=== PATIENT | male | born 1965 | race Caucasian/White ===

== ENCOUNTER 2021-02-26 10:09 | Emergency (ER) | payer OTHER, SELFPAY ==
[2021-02-26 10:17] VITALS: BP 124/90; PULSE 90; RESP 16; TEMP 36.7; O2SAT 100
--- NOTE | 2021-02-26 10:33 | ECG_ITS ---
Measurements Intervals [place] Rate: 68 P: 56 NH: 144 QRS: 63 QRSD: 97 T: -30 QT: 379 QTc: 404 Interpretive Statements SINUS RHYTHM EARLY PRECORDIAL R/S TRANSITION MINIMAL Q WAVES- ANTEROLATERAL LEADS INFERIOR INFARCT, PROBABLY RECENT ABNORMAL ECG Electronically Signed On 02-26-2021 15:39:52 CDT by Piter Talbot D.O.
--- NOTE | 2021-02-26 10:53 | ED.GENADULT ---
HPI - General Adult General Chief complaint: Extremity Problem,Nontraumatic Stated complaint: neck pain/faint Source: patient and RN notes reviewed Limitations: no limitations History of Present Illness HPI narrative: The Covid vaccinated, active patient-- who is a smoker/drinker on no meds --presents with syncope and chest pain. Patient states he is pain-free now and has no history of HTN, HLD, AODM, and no known ASHD [based upon remote stress test years ago]. Very early Friday morning about 0 300 AM, patient awoke from rest with left shoulder pain [he attributed to earlier gardening; he also walks 4 miles frequently]. As he was going to get oral NSAIDs, he had a brief episode of syncope resulting in 1 minute loss of consciousness, and abrading his face/nose. At the time he had associated nausea, and his pain syndrome lasted several hours and resolved spontaneously- perhaps after the Motrin he took. Currently he has no CP, S OB, calf pain/edema; no fever, loss of taste/smell, cough. EKG is significantly abnormal with sinus rhythm and ST elevation inferiorly 3 and aVF and small Q's laterally V5?6. He is advised he needs urgent referral to hospital, which he accepts by ambulance; he is given aspirin. Related Data Home Medications Medication Instructions Recorded Confirmed No Home Medications 02/26/21 02/26/21 Allergies Allergy/AdvReac Type Severity Reaction Status Date / Time No Known Allergies Allergy Verified 02/26/21 11:29 Review of Systems Review of Systems: Narrative: General/Constitutional: No weight loss,fever Eyes: N0: Redness,discharge Ears/Nose/Throat: No: Epistaxis,ear discharge Respiratory: Denies: Hemoptysis Gastrointestinal: No Vomiting, Bleeding-rectal Skin: No Lumps, eruption Neurologic: No Focal Weakness,Sz Hematologic: Denies: Petechiae/Purpura Psychiatric: No: Suicida ideationl All Other Systems: Reviewed and Negative PMFSH Comments At time of signature, agree with nursing past medical, surgical, social and family history. There is no relevant family history pertinent to the presenting complaint Exam Narrative: Exam Narrative: General Appearance: Well appearing, No distress EYE: PERRLA, Conjunctiva clear Ears: External ear normal Nose: Normal nose Mouth/Throat: Normal appearing, Normal lips Neck: Supple Respiratory: Airway patent, No respiratory distress Cardiovascular: RRR Abdomen: Soft, Non-tender, Musculoskeletal: Full ROM Skin: Warm, Dry Neurological: A&O x3, CN II-X intact Psychiatric: Normal mood, Normal affect Course Course Emergency Course: EKG sinus rhythm at 84 ID 0.145, QRS 0.09, QTC 0.[address] with [address] elevation 3 in AVF, small 1 box Q waves in V5?6 Vital Signs Vital signs: Vital Signs Temperature 98.1 F 02/26/21 10:17 Pulse Rate 90 02/26/21 10:17 Respiratory Rate 16 02/26/21 10:17 Blood Pressure 124/90 02/26/21 10:17 Pulse Oximetry 100 02/26/21 10:17 Temperature 98.3 F 02/26/21 10:58 Pulse Rate 66 02/26/21 10:58 Respiratory Rate 16 02/26/21 10:58 Blood Pressure 110/68 02/26/21 10:58 Pulse Oximetry 100 02/26/21 10:58 Medical Decision Making MDM Narrative Medical decision making narrative: MDM Med Decision Making DATA REVIEWED ECG & OTHER: ordered & reviewed PMH RECORDS: reviewed DISCUSSED: with another provider TEST : personally over-read RISKS of M &M CC/PROBLEM severe PROCEDURE low Tx OPTIONS Vital Signs Vital Signs: Vital Signs Temperature 98.1 F 02/26/21 10:17 Pulse Rate 90 02/26/21 10:17 Respiratory Rate 16 02/26/21 10:17 Blood Pressure 124/90 02/26/21 10:17 Pulse Oximetry 100 02/26/21 10:17 Temperature 98.3 F 02/26/21 10:58 Pul
[2021-02-26] MEDS: ASPIRIN 81 MG CHEWABLE TABLET 324 MG PO (10:56)
[2021-02-26 10:58] VITALS: BP 110/68; PULSE 66; RESP 16; TEMP 36.8; O2SAT 100
== END 2021-02-26 10:58 | disposition short-term general hospital (02) ==
LOC: EXPGLEN 10:12
PROVIDERS: Emergency Provider Emergency Medicine
DX: I24.9 Acute ischemic heart disease, unspecified (principal); R55 Syncope and collapse; R94.31 Abnormal electrocardiogram [ECG] [EKG]
CPT/HCPCS: 93005; 99205; A9270; G0463

== ENCOUNTER 2021-02-26 11:22 | Inpatient (IN) | payer OTHER, SELFPAY ==
[2021-02-26] VITALS (12 sets, daily range): BP systolic 107–122; BP diastolic 69–80; PULSE 55–75; RESP 16–20; TEMP 36.3–36.6; O2SAT 98–100; BMI 29.2
--- NOTE | ~2021-02-26 | XR_ITS ---
EXAMINATION: XR chest 2V DATE: 02/26/2021 11:47 INDICATION: Transient alteration of awareness, left shoulder pain TECHNIQUE: Frontal and lateral views of the chest are obtained COMPARISON: None available FINDINGS: There are patchy opacities of the mid and lower lung zones. There is no pleural effusion or pneumothorax. The cardiomediastinal silhouette is normal. The visualized bones and soft tissues are unremarkable. IMPRESSION: 1. Patchy opacities of the mid and lower lung zones which may reflect atelectasis versus pneumonia. Reviewed, dictated and finalized at location A. IMPRESSION: 1. Patchy opacities of the mid and lower lung zones which may reflect atelectas is versus pneumonia.
--- NOTE | 2021-02-26 11:28 | ECG_ITS ---
Measurements Intervals [place] Rate: 84 P: 57 SC: 145 QRS: 68 QRSD: 92 T: -33 QT: 359 QTc: 426 Interpretive Statements SINUS RHYTHM EARLY PRECORDIAL R/S TRANSITION MINIMAL Q WAVES- ANTEROLATERAL LEADS INFERIOR INFARCT, PROBABLY RECENT BASELINE ARTIFACT- I, II, AVR ABNORMAL ECG Electronically Signed On 02-26-2021 15:39:08 CDT by Piter Talbot D.O.
[2021-02-26 11:43] LABS: Basophils Percent Auto 0.2 % (0.2-1.2); Eosinophils Percent Auto 0.2 % (0-4.4); Hemoglobin 14.5 g/dL (14.0-18.0); Immature Granulocyte Absolute 0.09 K/mm3 (0.00-0.031); Immature Granulocyte Percent A 0.6 % (0-0.5); Lymphocytes Absolute Auto 3.53 K/mm3 (0.9-3.2); Lymphocytes Percent Auto 21.8 % (18.3-44.2); Mean Corpuscular HGB Conc 34.5 g/dl (32-36); Mean Corpuscular Hemoglobin 32.3 pg (26-34); Mean Corpuscular Volume 93.5 fl (80-100); Mean Platelet Volume 9.4 fl (7.4-10.4); Monocytes Absolute Auto 1.6 K/mm3 (0.1-0.6); Neutrophils Absolute Auto 10.9 K/mm3 (1.3-6.7); Neutrophils Percent Auto 67.2 % (45.5-73.1); Platelet Count Result 236 k/mm3 (150-375); Red Blood Count 4.49 M/mm3 (4.6-6.20); Red Cell Distribution Width 13.1 % (11.5-14.5); White Blood Count 16.2 K/mm3 (4.5-10.0)
[2021-02-26 11:53] LABS: Anion Gap 6 mmol/L (8-16); Blood Urea Nitrogen 8 mg/dL (9-20); Calcium 8.9 mg/dL (8.4-10.2); Carbon Dioxide 24 mmol/L (22-30); Chloride 101 mmol/L (98-107); Estimated CRCL calculation 110 ml/min; Estimated Glomerular Filt Rate > 60; Glucose 120 mg/dL (75-110); Sodium 131 mmol/L (137-145)
[2021-02-26 11:54] LABS: INR 0.9; Prothrombin Time 12.4 Seconds (11.1-14.7)
[2021-02-26 11:55] LABS: Partial Thromboplastin Time 30.2 SECONDS (22.3-36.8)
--- NOTE | 2021-02-26 12:19 | ED.GENADULT ---
HPI - General Adult General Chief complaint: Recheck/Abnormal Lab/Rx Stated complaint: CP Time Seen by Provider: 02/26/21 11:32 Source: patient History of Present Illness HPI narrative: Patient is a 56 y/o male complaining of left shoulder pain starting about 2:30 AM yesterday morning. He rates his pain as sharp and steady. There was no pain radiation. He took some Ibuprofen and his pain eventually resolved after about 5 hours. He also had sweating and nausea when it occurred. However, he feels well with no chest pain at this time. He was seen at urgent care earlier today and sent here for abnormal EKG. He was given Aspirin at urgent care. Related Data Home Medications Medication Instructions Recorded Confirmed No Home Medications 02/26/21 02/26/21 Allergies Allergy/AdvReac Type Severity Reaction Status Date / Time No Known Allergies Allergy Verified 02/26/21 11:29 Review of Systems Constitutional: Constitutional: Denies chills, Reports excessive sweating, Denies fever(s), Denies headache(s) and Denies weakness Eyes: Eyes: Denies blurry vision ENT: Denies headache(s) and Denies neck pain Cardiovascular: Cardiovascular: Reports chest pain and Denies dyspnea Respiratory: Respiratory: Denies cough and Denies dyspnea Gastrointestinal: Gastrointestinal: Denies abdominal pain, Denies diarrhea, Reports nausea and Denies vomiting Genitourinary: Genitourinary: Denies hematuria and Denies dysuria Musculoskeletal: Musculoskeletal: Denies back pain, Denies neck pain and Reports other (left shoulder pain) Neurologic: Denies headache(s) and Denies weakness [facility] Past Medical History Medical History (Updated 02/26/21 @ 14:36 by Emily Page MD) Non-ST elevation [place] (NSTEMI) Tobacco abuse Surgical History Surgical History (Updated 02/26/21 @ 14:03 by Renee Ramires NP) History of dental surgery Family History Family History Son Crohn disease Social History Social History (Updated 02/26/21 @ 14:04 by Renee Ramires NP) Social History: the patient lives with his who is the durable power compliance attorney for healthcare. The patient has 2 children. The patient continues to smoke a half pack a cigarettes a day. He does not use any marijuana or illicit drugs. He occasionally uses alcohol. He desires to be a full code. 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 Smoking packs per day: 0.5 Smoking cigarettes per day: 10.0 Years smoked: 30 Smoking pack-years: 15.00 Smoking status: Current every day smoker Tobacco type: cigarettes Second hand tobacco smoke exposure: Yes Alcohol intake: current Drinks per week: 7 Substance use: never Substance use type: does not use Spiritual care concerns: No Exam Const: General: no acute distress and well developed Orientation/consciousness: oriented to person, oriented to place, oriented to time and patient oriented x3 HENMT: Head: normocephalic Ears: external ears normal General nose exam: Normal external nose present Eyes: General: appearance normal, both eyes and all related structures Conjunctivae: conjunctivae normal Neck: Neck: normal visual inspection and full ROM Chest: Chest palpation & inspection: normal inspection of the chest and no tenderness Resp: Effort & Inspection: normal respiratory effort Auscultation: clear to auscultation bilaterally Cardio: Rate: regular rate Rhythm: regular rhythm GI: GI Palp: No abdominal tenderness and Yes Soft to palpation Skin: General skin exam: normal color and turgor normal Neuro: General: oriented to person, oriented to place, oriented to time and patient oriented x3 Cognition (Neuro): normal cognition Extrem: General: normal to inspection, full ROM and no pedal edema Psych: Appearance: grossly normal Mental Status: mental status grossly normal Affect: normal affect Course Consultations Consultation #1: Discussed
[2021-02-26] MEDS: HEPARIN SODIUM 5,000 UNITS/ML VIAL 4000 UNITS IV PUSH ×2 (12:50→21:00)
[2021-02-26] MEDS: HEPARIN SOD/D5W 100 UNITS/ML 25,000 UNITS/250 ML BAG 10 UNITS IV CONT (12:59)
--- NOTE | 2021-02-26 13:10 | PC.NURSE ---
called lab spoke to Sola added on a lipid panel at 1310
[2021-02-26 13:16] LABS: Cholesterol 173 mg/dL (0-200); HDL Direct 66 mg/dL; Triglycerides 95 mg/dL (<150)
[2021-02-26 13:27] LABS: LDL Cholesterol Direct 79 mg/dL
--- NOTE | 2021-02-26 13:51 | PM.IMHP ---
H&P: HPI History of Present Illness Date/Time: 02/26/21 13:51Thicarlos eduardo is a 56-year-old male patient who has no prior medical history. The patient smokes about half a pack a cigarettes a day for many years. The patient stated that he was working outside for 2-3 hours on Friday and woke up during the night with severe left shoulder pain. The patient stated he was having severe pain in his left arm and he actually passed out Friday. The patient stated that he thought he just pulled a muscle in his left arm or his neck. He said Friday morning he has a little bit of nausea and was diaphoretic that day. The patient went to the urgent care today and had an EKG which they saw some changes. He had some minimal elevation and the lead 2 and aVf. WBC 16.2. Troponin the 44.7. EKG was noticed to sinus rhythm probable lateral myocardial infarction. Inferior myocardial infarction. Probably recent with posterior extension. Acute [place]. The ER doctor spoke with Dr. Aviles as well as myself. However this incident occurred on Friday and patient is several days out since the occurrence. The patient is stating that he does not have any discomfort at this time. The patient stated that he did take some naproxen for his left shoulder pain over the weekend. The patient was given aspirin and started on heparin drip. The patient is being admitted to inpatient services on the date of service of 02/26/2021. Chief Complaint: 100 out the other day left shoulder pain Review of Systems Review of Systems: All systems reviewed & are unremarkable except as noted in HPI and below Constitutional: Constitutional: Reports as per HPI and Reports no additional constitutional complaints Eyes: Eyes: Reports as per HPI and Reports no additional eye complaints ENT: Reports system reviewed and no additional complaints, except as documented and Reports Normal hearing present Cardiovascular: Cardiovascular: Reports no additional cardiovascular complaints Respiratory: Respiratory: Reports no additional respiratory complaints and Reports no additional respiratory complaints Gastrointestinal: Gastrointestinal: Reports as per HPI and Reports no additional gastrointestinal complaints Musculoskeletal: Musculoskeletal: Reports no additional musculoskeletal complaints Integumentary/Breasts: Skin/Breast: Reports system reviewed and no additional complaints, except as docu and Reports as per HPI Neurologic: Reports system reviewed and no additional complaints, except as documented, Reports as per HPI and Reports Normal hearing present Psychiatric: Psychiatric: Reports no additional psychiatric complaints and Reports as per HPI Endocrine: Endocrine: Reports no additional endocrine complaints Hematologic/Lymphatic: Hematologic/Lymphatic: Reports no additional hematologic/lymphatic complaints Allergic/Immunologic: Allergic/Immunologic: Reports no additional allergic/immunologic complaints [facility] Past Medical History Medical History (Updated 02/26/21 @ 14:10 by Renee Ramires NP) Non-ST elevation [place] (NSTEMI) Tobacco abuse Surgical History Surgical History (Updated 02/26/21 @ 14:03 by Renee Ramires NP) History of dental surgery Family History Family History (Updated 02/26/21 @ 14:03 by Renee Ramires NP) Son Crohn disease Social History Social History (Updated 02/26/21 @ 14:04 by Renee Ramires NP) Social History: the patient lives with his who is the durable power real estate attorney for healthcare. The patient has 2 children. The patient continues to smoke a half pack a cigarettes a day. He does not use any marijuana or illicit drugs. He occasionally uses alcohol. He desires to be a full code. 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 Smoking packs per day: 0.5 Smoking cigarettes per day: 10.0 Years smoked: 30 Smoking pack-years: 15.00 Smoking status: Current every day smoker Tobacco type: cigarettes Second hand tobacco smoke exp
--- NOTE | 2021-02-26 13:53 | PC.NURSE ---
This patient, Jose Daniel Munguia, was admitted to IMU Room 231-01. Patient/family oriented to hospital policies and general routines including ID bracelet, bed and alarms, visiting hours, pain management, procedures, bathroom and other care routines, personal items, smoking policy, room service/diet, and visiting hours. Information on how to activate the Rapid Response Team has been discussed. Patient/Family are encouraged to report perceived risks to care and to ask questions if they do not understand what they are told or what they should do.
--- NOTE | 2021-02-26 15:26 | PM.CNCAR ---
Assessment and Plan Additional Plan this is a 56-year-old man with the out really any significant medical problems and history of smoking. He enters the hospital after obviously sustaining myocardial infarction more than 24 hours before coming into the hospital. Troponin levels are but rather high INR on the decline. EKG suggests this was an inferior wall infarction. Because of his relatively young age I would recommend performing a coronary angiogram but there is obviously no urgency to doing this immediately as the infarct is a completed event. He was placed be placed on aspirin, statins beta-blockers and brought to the labor operator tomorrow morning. Further recommendations will be forthcoming after the angiograms are completed. Sarabjit Aviles MD [facility] History of Present Illness History of Present Illness Consult date/time: 02/26/21 15:26 Reason For Visit: Acute Inferior MA Narrative: This is a 56-year-old man who I am seeing at the request of the hospitalist because it seems relatively obvious that he sustained a myocardial infarction over the weekend and came to the hospital from urgent care center today. He is currently asymptomatic appears to be comfortable and has no complaints. He states that he was doing some significant yd work on Friday at home trimming some shrubs and pulling weeds in things like this. He worked fairly hard. He then states that he awoke from sleep at about 230 in the morning on Friday morning in the middle of the night having relatively severe left shoulder pain. He was not having pain anywhere else and it was his assumption that this was musculoskeletal problem because of the yd work he was doing the previous day. The shoulder pain was associated with some diaphoresis and 1 episode where he lost consciousness abruptly for about a minute or 2 at home. He said he had a rough night and Friday was a rough day with this pain lasting most of the entire day. Later in the evening since Friday the discomfort did taper off and resolved. He did not feel too bad at that point he he states when he was in significant distress his was encouraging him to come to the hospital but he resisted. On her continued encouragement he finally agreed to come to an urgent care center to be evaluated today. His electrocardiogram was obviously abnormal showing evidence of a inferior infarction and a troponin level was done that was very high at 45. He was then sent to the emergency room evaluated and admitted to IMU. In that situation I am seeing him this afternoon. He states he has been in very good health his entire adult life he was not taking any home medications for anything denies any knowledge specifically of hypertension diabetes or dyslipidemia. 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 Review of Systems Constitutional: Constitutional: Reports no additional constitutional complaints Eyes: Eyes: Reports no additional eye complaints ENT: Reports system reviewed and no additional complaints, except as documented Cardiovascular: Cardiovascular: Reports as per HPI Respiratory: Respiratory: Reports no additional respiratory complaints Gastrointestinal: Gastrointestinal: Reports no additional gastrointestinal complaints Musculoskeletal: Musculoskeletal: Reports as per HPI Integumentary/Breasts: Skin/Breast: Reports system reviewed and no additional complaints, except as docu Neurologic: Reports system reviewed and no additional complaints, except as documented Endocrine: Endocrine: Reports no additional endocrine complaints Hematologic/Lymphatic: Hematologic/Lymphatic: Reports no additional hematologic/lymphatic complaints Allergic/Immunologic: Allergic/Immunologic: Reports no additional allergic/immunologic complaints [facility] Past Medical History Medical History (Updated 02/26/21 @ 14:36 by Emily Page MD) Non-ST elevation [place] (NSTEMI) Tobacco abuse Surgical Histo
[2021-02-26] MEDS: ATORVASTATIN 40 MG TABLET PO (15:31)
[2021-02-26 19:12] LABS: Partial Thromboplastin Time 46.8 SECONDS (22.3-36.8)
[2021-02-27] VITALS (23 sets, daily range): BP systolic 91–113; BP diastolic 56–73; PULSE 54–89; RESP 1–20; TEMP 35.9–37.7; O2SAT 94–100
--- NOTE | 2021-02-27 | ECHO_ITS ---
Patient Info Name: Jose Daniel Munguia Age: 56 years : 1965 Gender: Male Ht: 72 in Wt: 215 lbs BSA: 2.25 m2 HR: 61 bpm BP: 95 / 60 mmHg Heart Rhythm: Sinus Rhythm Technical Quality: Good Exam Date: 02/27/2021 11:38 AM Exam Location: [facility] Patient Status: Inpatient Admit Date: 02/26/2021 Staff Ordering Physician: Janette Mendoza PA-C Solid Waste Engineer: Miguel Ángel Aaron RDCS, RT Attending Provider: Janette Mendoza PA-C Referring Physician: Reji ALLEN; Exam Type: CA echo doppler color flow Study Info Indications I50.9 - Heart failure, unspecified Complete two-dimensional, color flow and Doppler transthoracic echocardiogram is performed. Strain analysis performed. Summary 1. Complete two-dimensional, color flow and Doppler transthoracic echocardiogram is performed. 2. Normal left ventricular size and thickness with overall good contractility, ejection fraction 60-65%. However there is hypokinesis of the mid and proximal inferior segments. Global longitudinal strain is borderline low at -17%. Normal diastolic function. 3. Normal right ventricular size and function. 4. Borderline left atrial enlargement. 5. No significant valve disease. 6. Dilated inferior vena cava with normal respiratory variation. 7. Pulmonary pressure could not be evaluated. 8. Normal sinus rhythm. Left Ventricle Left ventricular chamber dimension is normal. Left ventricular systolic function is normal, estimated at 60-65%. There is no increased left ventricular wall thickness. Left ventricular septal wall motion is normal. The left ventricular diastolic function is normal. Global longitudinal strain is abnormal at -17 %. Right Ventricle Right ventricular chamber dimension is normal. Right ventricular systolic function is normal. Left Atria Left atrial chamber dimension is mildly enlarged. Right Atria Right atrial chamber dimension is normal. Aortic Valve The aortic valve is trileaflet. There is mild aortic valve sclerosis. There is no aortic valve stenosis. There is no aortic valve regurgitation. Pulmonic Valve The pulmonic valve is normal. There is no pulmonic valve stenosis. There is no pulmonic regurgitation. Mitral Valve The mitral valve has normal leaflets. There is no mitral valve stenosis. There is trace mitral valve regurgitation. Tricuspid Valve The tricuspid valve leaflets are normal. There is no significant tricuspid valve stenosis. There is trace tricuspid valve regurgitation. No pulmonary hypertension, estimated pulmonary arterial systolic pressure is Empty. Pericardium/Pleural The pericardium appears normal. There is no pericardial effusion. Inferior Vena Cava Dilated inferior vena cava with >50% collapse upon inspiration consistent with Empty right atrial pressure, Empty. Aorta The aortic root size at the sinus of Valsalva is normal. The prox ascending aorta size is normal. Left Ventricular Outflow Tract Name Value Normal LVOT 2D LVOT Diameter 2.2 cm LVOT Doppler LVOT Peak Gradient 3 mmHg LVOT Mean Gradient
[2021-02-27 05:03] LABS: Basophils Absolute Auto 0.1 K/mm3 (0.0-0.1); Basophils Percent Auto 0.4 % (0.2-1.2); Eosinophils Percent Auto 0.1 % (0-4.4); Hematocrit 40.2 % (42.0-52.0); Hemoglobin 13.9 g/dL (14.0-18.0); Immature Granulocyte Absolute 0.14 K/mm3 (0.00-0.031); Immature Granulocyte Percent A 0.8 % (0-0.5); Lymphocytes Absolute Auto 3.53 K/mm3 (0.9-3.2); Lymphocytes Percent Auto 21.2 % (18.3-44.2); Mean Corpuscular HGB Conc 34.6 g/dl (32-36); Mean Corpuscular Volume 92.6 fl (80-100); Mean Platelet Volume 9.8 fl (7.4-10.4); Monocytes Percent Auto 12.2 % (2.6-8.5); Neutrophils Absolute Auto 10.9 K/mm3 (1.3-6.7); Neutrophils Percent Auto 65.3 % (45.5-73.1); Platelet Count Result 215 k/mm3 (150-375); Red Blood Count 4.34 M/mm3 (4.6-6.20); Red Cell Distribution Width 13.1 % (11.5-14.5); White Blood Count 16.7 K/mm3 (4.5-10.0)
[2021-02-27 05:18] LABS: Alanine Aminotransferase 63 U/L (4-50); Albumin Level 3.8 g/dL (3.5-5.1); Alkaline Phosphatase 67 U/L (38-126); Anion Gap 6 mmol/L (8-16); Aspartate Amino Transferase 201 U/L (17-59); Bilirubin,Total 1.3 mg/dL (0.2-1.3); Blood Urea Nitrogen 9 mg/dL (9-20); Calcium 8.9 mg/dL (8.4-10.2); Carbon Dioxide 26 mmol/L (22-30); Chloride 102 mmol/L (98-107); Estimated CRCL calculation 110 ml/min; Estimated Glomerular Filt Rate > 60; Glucose 112 mg/dL (75-110); Lactate Dehydrogenase 1966 U/L (313-618); Lactic Acid Reflex 0.8 mmol/L (0.7-2.1); Potassium 3.8 mmol/L (3.4-5.0); Sodium 134 mmol/L (137-145)
[2021-02-27 06:15] LABS: Partial Thromboplastin Time 74.1 SECONDS (22.3-36.8)
--- NOTE | 2021-02-27 07:15 | WPDMODSED ---
Moderate Sedation Note-Pt Data Patient Data Diagnosis: inferior wall myocardial infarction, late presentation Present Complaint: no complaint Procedure to be performed/Plan: left heart catheterization Allergies Allergy/AdvReac Type Severity Reaction Status Date / Time No Known Allergies Allergy Verified 02/26/21 11:29 Home Medications Medication Instructions Recorded Confirmed Type No Home Medications 02/26/21 02/26/21 History Current Medications: Active Medications Atorvastatin Calcium (Atorvastatin 20 Mg Tablet) 20 mg PO DAILY ALFRED Heparin Sodium (Porcine) (Heparin Sodium 5,000 Units/Ml Vial) 4,000 units IV PUSH PRN PRN PRN Reason: aPTT less than 55 seconds Last Admin: 02/26/21 21:00 Dose: 4,000 units Documented by: Heparin Sodium (Porcine) (Heparin Sodium 5,000 Units/Ml Vial) 3,500 units IV PUSH PRN PRN PRN Reason: aPTT 55 - 70 seconds Heparin Sodium/Dextrose (Heparin Sodium/D5w 100 Units/Ml) 25,000 units in 250 mls @ 13 mls/hr IV CONT .[id number] ALFRED; Protocol Last Titration: 02/26/21 21:00 Dose: 1,300 units/hr, 13 mls/hr Documented by: Sedation/Anesthesia: No previous sedation/anesthesia problems (including family history). [facility] Past Medical History Medical History (Updated 02/27/21 @ 00:00 by Denver Montemayor) Non-ST elevation [place] (NSTEMI) Tobacco abuse Surgical History Surgical History (Updated 02/26/21 @ 14:03 by Renee Ramires NP) History of dental surgery Family History Family History Son Crohn disease Social History Social History (Updated 02/26/21 @ 14:04 by Renee Ramires NP) Social History: the patient lives with his who is the durable power second floor operator for healthcare. The patient has 2 children. The patient continues to smoke a half pack a cigarettes a day. He does not use any marijuana or illicit drugs. He occasionally uses alcohol. He desires to be a full code. 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 Smoking packs per day: 0.5 Smoking cigarettes per day: 10.0 Years smoked: 30 Smoking pack-years: 15.00 Smoking status: Current every day smoker Tobacco type: cigarettes Second hand tobacco smoke exposure: Yes Alcohol intake: current Drinks per week: 7 Substance use: never Substance use type: does not use Spiritual care concerns: No Mod Sed Physical Exam Physical Exam Pre Procedural Exam: Normal: Appearance, Neck, Throat, Airway, Lungs, Heart Size, Heart Rate, Heart Rhythm, Neuro Exam and Extremities Hours since solid foods: 12 Hours since liquid intake: 12 Mallampati Classification: class II Internal Medicine - PN: Obj Da Vital Signs Vital Signs: Vital Signs - 24 hr 02/26/21 11:22 02/26/21 11:28 02/26/21 12:20 Temperature Pulse Rate 70 66 59 L Respiratory Rate 19 18 Blood Pressure 118/80 107/75 Pulse Oximetry 98 99 02/26/21 13:02 02/26/21 13:45 02/26/21 13:55 Temperature 36.4 C Pulse Rate 63 58 L 55 L Respiratory Rate 19 18 16 Blood Pressure 110/70 108/78 122/73 Pulse Oximetry 99 100 100 02/26/21 14:08 02/26/21 16:00 02/26/21 18:00 Temperature 36.3 C L Pulse Rate 55 L 63 62 Respiratory Rate 16 Blood Pressure 109/71 Pulse Oximetry 98 02/26/21 20:00 02/26/21 21:58 02/26/21 23:37 Temperature 36.6 C 36.4 C Pulse Rate 75 65 65 Respiratory Rate 20 18 Blood Pressure 121/80 118/69 Pulse Oximetry 99 99 02/27/21 00:00 02/27/21 02:00 02/27/21 04:00 Temperature Pulse Rate 62 67 62 Respiratory Rate Blood Pressure Pulse Oximetry 02/27/21 04:40 02/27/21 06:00 Temperature 35.9 C L Pulse Rate 62 64 Respiratory Rate 17 Blood Pressure 102/68 Pulse Oximetry 97 Intake/Output Intake/Output: Intake & Output 02/24/21 02/25/21 02/26/21 02/27/21 23:59 23:59 23:59 23:59 Intake Total 500 Output Total 350 1800 Balance 150 -1800 Meds/Results Medications: Active Medications Gener
--- NOTE | 2021-02-27 07:56 | P.PCNCC_ITS ---
Cardiac Cath Procedure Note Date of procedure:: 02/27/21 Performing physician:: Sarabjit Aviles MD Indication:: inferior wall myocardial infarction, late presentation Brief clinical history:: this is a 56-year-old man who came into the hospital yesterday reporting that in the middle of the night on Friday morning of last weekend he began experiencing severe left shoulder pain diaphoresis and had a syncopal episode. He presented to the hospital yesterday about 48 hours after the event with obvious ECG and enzyme evidence that an inferior infarction had occurred. At that point he was asymptomatic. Because of his relatively young age I did recommend angiography which is happening this morning Procedure Procedure performed:: left heart catheterization Angio-Seal to right femoral artery Sedation/Medication given:: fentanyl 50 mg Versed 2 mg case start time 7:36 a.m. case end time 7:51 a.m. sedation provided by Kanwal Lind RN, trained observer Access site:: right femoral artery Estimated blood loss:: 10-15 cc Procedure note:: patient was brought to the catheterization lab in the postabsorptive state where the right femoral triangle was prepared and draped in the usual fashion. Anesthesia was provided with 1% lidocaine infiltrated locally. Using the modified Seldinger technique a 5 English sheath was placed into the femoral artery. I then performed left heart catheterization. A 5 English angled pigtail catheter was used to measure left-sided hemodynamics and to injected LV g in the LIN projection. After this a standard 5 English FL4 catheter was used to engage coronary artery in multiple projections. A standard 5 English JR4 catheter used to the right artery. The cineangiograms were reviewed and the case terminated. An angiogram was done of the femoral artery through the sheath after which an Angio-Seal device was deployed with a good hemostatic result. The left the laborer/grade check with no evidence of any complication and no sign of groin hematoma. Findings:: Hemodynamics: Central aortic pressure is 106 over 58 left ventricle 106/2 end-diastolic 16 there is no gradient on pullback across the aortic valve. Left ventricle: The LV is of normal size the inferior wall is akinetic the apex and anterior wall contracts normally the global ejection fraction of visually estimated to be 45%. The left main coronary artery is widely patent. The left anterior descending is a medium caliber artery extending down to the apex the LAD and its branches are smooth and angiographically normal in appearance the circumflex is a medium caliber artery giving rise to the marginal branches the circumflex smooth and angiographically normal in appearance. The circumflex does provide collateral filling to the RPDA. The right coronary artery is medium in caliber and was dominant to the posterior circulation in the 2nd portion the right coronary artery is 100% occluded with no antegrade flow distal to the occlusion. This is obviously the culprit lesion for the infarction which occurred several days ago. Conclusion:: 1. Single-vessel coronary artery disease with right coronary dominant circulation and 100% occlusion of the mid RCA which resulted in inferior infarction which occurred approximately 48 hours prior to presenting to the hospital. 2. No left coronary artery disease 3. mild LV systolic dysfunction with akinesis of the inferior wall as detailed above Sarabjit Aviles MD [facility]
[2021-02-27] MEDS: SODIUM CHLORIDE 0.9% IV 1,000 ML 125 ML IV CONT (09:10)
--- NOTE | 2021-02-27 10:31 | PM.IMPN ---
Progress Note: A&P Assessment and Plan (1) Acute inferior myocardial infarction: Code(s): I21.19 - ST elevation (STEMI) myocardial infarction involving other coronary artery of inferior wall Status: Acute Assessment and Plan: Sustained >24 hours prior to presentation with significant troponin elevation (up to 45) and EKG changes suggestive of inferior wall infarct. Underwent cardiac catheterization today which demonstrated 100% occlusion of the right coronary artery. Appreciate cardiology consultation Continue aspirin, metoprolol, and high intensity statin Echocardiogram ordered for right ventricle evaluation. Heparin drip discontinued He will need outpatient cardiology follow up (2) Coronary artery disease: Code(s): I25.10 - Atherosclerotic heart disease of [place] coronary artery without angina pectoris Status: Acute Assessment and Plan: Plan as above. (3) Tobacco abuse: Code(s): Z72.0 - Tobacco use Status: Chronic Assessment and Plan: He smokes 1/2 pack per day. Declines need for nicotine patch. Discussed smoking cessation for 7 minutes. He understands need for cessation and is motivated to quit smoking. (4) Syncope: Qualifiers: Syncope type: unspecified Qualified Code(s): R55 - Syncope and collapse Code(s): R55 - Syncope and collapse Status: Inactive Assessment and Plan: He had a brief loss of consciousness lasting about 1 minute preceded by an episode of diaphoresis and shoulder pain. (5) Transaminitis: Code(s): R74.01 - Elevation of levels of liver transaminase levels Status: Acute Assessment and Plan: AST and ALT are slightly elevated. No prior labs available for review. May be related to hepatic congestion vs inflammatory response. Echo being ordered as above to evaluate right ventricular function. Monitor LFTs Subjective Date/time seen: 02/27/21 10:31 Interval history: Date of service: 02/27/2021 Jose Daniel Munguia is a 56-year-old previously healthy male smoker with no medical conditions is seen in follow-up for acute inferior [place]. He had returned from cardiac catheterization and tolerated the procedure well. His pain is well controlled at this time. He denies any chest pain. No shortness of breath. No arm pain or jaw pain. He has some soreness at the groin but denies pain. He ate breakfast this morning following his cath and tolerated well. No abdominal pain, nausea, vomiting. No dizziness or lightheadedness. No urinary symptoms. He has no other concerns at this time and is feeling well. His is present at the bedside during interview and examination. Review of Systems Review of Systems: All systems reviewed & are unremarkable except as noted in HPI and below Exam Narrative: Exam Narrative: Mr. Munguia is a well-nourished, well-appearing 56-year-old male who is lying supine in bed. He appears comfortable and is in NARD. Neuro: awake, alert and oriented x4, speech clear, no focal neuro deficits noted HEENMT: normocephalic, atraumatic, EOMI, sclerae anicteric, moist oral mucosa Neck: supple, no lymphadenopathy Respiratory: clear to auscultation bilaterally, nonlabored breathing Cardio: regular rate, regular rhythm with S1-S2 Abdomen: nondistended, normoactive bowel sounds, soft, nontender to palpation Extremities: no edema, erythema, or tenderness to palpation, DP pulses 2+ bilaterally Skin: small abrasion on right forehead, faint bruising on nasal bridge, warm and dry Psych: appropriate mood and affect, judgment and insight intact Objective Data Vital Signs Vital Signs: Vital Signs - 24 hr 02/26/21 11:22 02/26/21 11:28 02/26/21 12:20 Temperature Pulse Rate 70 66 59 L Respiratory Rate 19 18 Blood Pressure 118/80 107/75 Pulse Oximetry 98 99 02/26/21 13:02 02/26/21 13:45 02/26/21 13:55 Temperature 97.6 F Pulse Rate 63 58 L 55 L Resp
[2021-02-27] MEDS: ATORVASTATIN 40 MG TABLET PO (13:09)
[2021-02-28] VITALS (10 sets, daily range): BP systolic 92–105; BP diastolic 55–72; PULSE 60–70; RESP 12–20; TEMP 36.4–37.1; O2SAT 97–100
[2021-02-28 05:43] LABS: Alanine Aminotransferase 56 U/L (4-50); Albumin Level 3.4 g/dL (3.5-5.1); Alkaline Phosphatase 66 U/L (38-126); Anion Gap 6 mmol/L (8-16); Aspartate Amino Transferase 93 U/L (17-59); Basophils Absolute Auto 0.1 K/mm3 (0.0-0.1); Basophils Percent Auto 0.6 % (0.2-1.2); Bilirubin,Total 1.2 mg/dL (0.2-1.3); Blood Urea Nitrogen 9 mg/dL (9-20); Calcium 8.5 mg/dL (8.4-10.2); Carbon Dioxide 26 mmol/L (22-30); Chloride 104 mmol/L (98-107); Eosinophils Percent Auto 0.2 % (0-4.4); Estimated CRCL calculation 97 ml/min; Estimated Glomerular Filt Rate > 60; Glucose 99 mg/dL (75-110); Hematocrit 41.3 % (42.0-52.0); Hemoglobin 13.5 g/dL (14.0-18.0); Immature Granulocyte Absolute 0.11 K/mm3 (0.00-0.031); Immature Granulocyte Percent A 0.9 % (0-0.5); Lactate Dehydrogenase 1452 U/L (313-618); Lymphocytes Absolute Auto 3.41 K/mm3 (0.9-3.2); Lymphocytes Percent Auto 27.1 % (18.3-44.2); Mean Corpuscular HGB Conc 32.7 g/dl (32-36); Mean Corpuscular Hemoglobin 32.3 pg (26-34); Mean Corpuscular Volume 98.8 fl (80-100); Mean Platelet Volume 10.3 fl (7.4-10.4); Monocytes Absolute Auto 1.6 K/mm3 (0.1-0.6); Monocytes Percent Auto 12.7 % (2.6-8.5); Neutrophils Absolute Auto 7.4 K/mm3 (1.3-6.7); Neutrophils Percent Auto 58.5 % (45.5-73.1); Platelet Count Result 200 k/mm3 (150-375); Potassium 3.8 mmol/L (3.4-5.0); Red Blood Count 4.18 M/mm3 (4.6-6.20); Red Cell Distribution Width 13.4 % (11.5-14.5); Sodium 136 mmol/L (137-145); White Blood Count 12.6 K/mm3 (4.5-10.0)
[2021-02-28] MEDS: ASPIRIN 81 MG ENTERIC TABLET PO (08:56)
[2021-02-28] MEDS: ATORVASTATIN 40 MG TABLET PO (08:56)
--- NOTE | 2021-02-28 12:20 | PC.NURSE ---
To be noted - all charting on this patient on 02/28/21 from [id number] was noted to be as Lisa Hernandez. This was an error. All charting during this time was completed by Rika Dale RN.
--- NOTE | 2021-02-28 12:39 | PC.NURSE ---
[facility] flyer was given to patient.
--- NOTE | 2021-02-28 15:26 | PM.PNCARD ---
Progress Note: A&P Assessment and Plan (1) Non-ST elevation [place] (NSTEMI): Code(s): I21.4 - Non-ST elevation (NSTEMI) myocardial infarction Status: Acute Assessment and Plan: Late presentation with chest pain for 48 hours before coming to the emergency department. LHC revealed 100% occlusion of the mid RCA resulting in inferior [place]. No left coronary artery disease seen by angiography. He has been placed on ASA and a statin. He is free from any symptoms at this time. He is stable to discharge home today. We talked at length about risk reduction strategies including heart healthy/low cholesterol diet and exercise. Discussed smoking cessation. I will see him in the office in 3 weeks for follow up. (2) Tobacco abuse: Code(s): Z72.0 - Tobacco use Status: Chronic Assessment and Plan: Performed extensive counseling on smoking cessation and the importance of abstaining from tobacco products for cardiovascular health. Subjective Date/time seen: 02/28/21 15:26 Cariology follow up for chest pain Date of service 02/28/21: Patient is feeling very well today. He denies chest pain, shrotness of breath. He says he has been up walking around the halls multiple times and has not experienced any chest discomfort, shortness of breath, or palpitations. We talked about the results of his echo. Reviewed activity restrictions, wound care, new medications for discharge. Patient and who is at the bedside verbalize understanding of everything discussed. Review of Systems Constitutional: Constitutional: Reports no additional constitutional complaints Eyes: Eyes: Reports no additional eye complaints ENT: Reports system reviewed and no additional complaints, except as documented Cardiovascular: Cardiovascular: Reports as per HPI Respiratory: Respiratory: Reports no additional respiratory complaints Gastrointestinal: Gastrointestinal: Reports no additional gastrointestinal complaints Musculoskeletal: Musculoskeletal: Reports as per HPI Integumentary/Breasts: Skin/Breast: Reports system reviewed and no additional complaints, except as docu Neurologic: Reports system reviewed and no additional complaints, except as documented Endocrine: Endocrine: Reports no additional endocrine complaints Hematologic/Lymphatic: Hematologic/Lymphatic: Reports no additional hematologic/lymphatic complaints Allergic/Immunologic: Allergic/Immunologic: Reports no additional allergic/immunologic complaints Exam Const: General: comfortable and no acute distress HENMT: Head: normal to inspection Mouth: Yes moist mucous membranes Eyes: General: appearance normal, both eyes and all related structures Neck: Neck: supple and no JVD Carotids: no bruits Resp: Effort & Inspection: normal respiratory effort Auscultation: clear to auscultation bilaterally Cardio: Rate: regular rate Rhythm: regular rhythm Heart sounds: no murmurs GI: GI Palp: Yes Soft to palpation Auscultation: normal bowel sounds Skin: General skin exam: normal color Other: R groin [facility] inserion site free from bleeding, swelling, hematoma, pain. Neuro: Cognition (Neuro): normal cognition Extrem: General: normal to inspection, no edema and no pedal edema Other: normal pulses no edema Psych: Mental Status: mental status grossly normal Affect: normal affect Objective Data Vital Signs Vital Signs: Vital Signs - 24 hr 02/27/21 16:00 02/27/21 18:00 02/27/21 19:01 Temperature 36.6 C 37.7 C H Pulse Rate 66 89 63 Respiratory Rate 15 15 Blood Pressure 108/68 105/65 Pulse Oximetry 100 98 02/27/21 20:00 02/27/21 22:00 02/28/21 00:00 Temperature 36.4 C L Pulse Rate 66 62 65 Respiratory Rate 20 Blood Pressure 92/61 L Pulse Oximetry 98 02/28/21 02:00 02/28/21 04:00 02/28/21 06:00 Temperature 36.5 C Pulse Rate 60 61 66 Respiratory Rate 20 Blood Pressure 98/55 L Pulse Oximetry 97 02/28/21 07:56 02/28/21 08:0
--- NOTE | 2021-02-28 16:32 | PC.NURSE ---
Patient discharged to home. No complaints of chest pain/shortness of breath at the time of discharge. Patient ambulated to hospital exit with staff.
--- NOTE | 2021-03-01 06:55 | PM.DS ---
DS: Admitting Diagnosis Admitting Diagnosis Admitting Diagnosis: Inferior [place] DS: Discharge Diagnosis Discharge Diagnosis (1) Acute inferior myocardial infarction: Code(s): I21.19 - ST elevation (STEMI) myocardial infarction involving other coronary artery of inferior wall Status: Acute Assessment and Plan: Sustained >24 hours prior to presentation with significant troponin elevation (up to 45) and EKG changes suggestive of inferior wall infarct. Seen in consultation by cardiology. Underwent cardiac catheterization on 02/27/21 which demonstrated 100% occlusion of the mid right coronary artery. Heparin drip started at admission and discontinued following cath. Started on aspirin and high intensity statin per cardiology recommendations. Started on metoprolol, which was later discontinued as his blood pressures were somewhat soft. Echocardiogram reviewed with normal right ventricular size and function, normal EF Outpatient cardiology follow-up in 3 weeks Lifestyle modifications discussed including heart healthy diet and regular exercise, smoking cessation as described below (2) Coronary artery disease: Code(s): I25.10 - Atherosclerotic heart disease of [place] coronary artery without angina pectoris Status: Acute Assessment and Plan: Plan as above. (3) Tobacco abuse: Code(s): Z72.0 - Tobacco use Status: Chronic Assessment and Plan: He smokes 1/2 pack per day. Smoking cessation discussed. He understands need for cessation and is motivated to quit smoking. (4) Syncope: Qualifiers: Syncope type: unspecified Qualified Code(s): R55 - Syncope and collapse Code(s): R55 - Syncope and collapse Status: Inactive Assessment and Plan: He had a brief loss of consciousness lasting about 1 minute preceded by an episode of diaphoresis and shoulder pain, related to acute coronary event (5) Transaminitis: Code(s): R74.01 - Elevation of levels of liver transaminase levels Status: Acute Assessment and Plan: AST and ALT elevated at presentation with signifincant improvement. No prior labs available for review. May be related to hepatic congestion vs inflammatory response. Repeat LFTs in 1 week. He will be establishing care with a PCP who can monitor. DS: Summary Hospital Course Hospital Course: date of admission: 02/26/2021 date of discharge: 02/28/2021 Jose Daniel Young Driscoll is a 56-year-old previously healthy male smoker with no medical conditions who presented to the emergency department on 02/26/2021 from urgent care after an episode of left shoulder pain, sweating, and brief loss of consciousness >24 hours prior. He was found to have an abnormal EKG at urgent care. Upon presentation to the emergency department, his vital signs were stable, WBC elevated at 16.2 and troponin was elevated at 44.7. he was admitted to the hospitalist service and seen in consultation by cardiology. Please see above for further details. He underwent cardiac catheterization. he was asymptomatic throughout the course of his hospitalization was eager for discharge home. Given his stable condition, he was determined to no longer require inpatient care and was felt to be stable for discharge. We discussed worrisome signs and symptoms for which to return at length and he was educated on his medications. He was discharged in hemodynamically stable condition on 02/28/21. Status at Discharge Overall status at discharge: patient is progressing back to baseline Time Spent with Patient Time attestation: Total time spent providing and/or coordinating discharge services: 45 minutes Time spent: Greater than 30 minutes Exam Narrative: Exam Narrative: Mr. Munguia is a well-nourished, well-appearing 56-year-old male who is lying supine in bed. He appears comfortable and is in NARD. Neuro: awake, alert and oriented x4, speech clear, no focal
== END 2021-02-28 16:00 | disposition home or self-care (01) | DRG 282 ==
LOC: ANHED 11:49 → ANHIMU 14:36
PROVIDERS: Nurse Practitioner; Specialist; Admitting Provider Internal Medicine; Emergency Provider Emergency Medicine; Visit Provider Physician Assistant
PROC: 4A023N7 Measurement of Cardiac Sampling and Pressure, Left Heart, Percutaneous Approach (ICD-10-PCS; CPT 93452; principal; 2021-02-27 07:10)
PROC: 4A023N7 Measurement of Cardiac Sampling and Pressure, Left Heart, Percutaneous Approach (ICD-10-PCS; 2021-02-27 07:10)
DX: I21.19 ST elevation (STEMI) myocardial infarction involving other coronary artery of inferior wall (principal); I25.10 Atherosclerotic heart disease of native coronary artery without angina pectoris; R55 Syncope and collapse; R74.01 Elevation of levels of liver transaminase levels; F17.210 Nicotine dependence, cigarettes, uncomplicated
CPT/HCPCS: 36415; 71046; 80048; 80053; 80061; 83605; 83615; 83735; 84443; 84484; 85025; 85610; 85730; 93005; 93306; 93458; 96374; 99291; A9270; C1760; C1887; C1894; G0269; J1644; J2250; J3010; J7030; J7040

== ENCOUNTER 2024-11-05 00:30 | Day surgery (SDC) | payer OTHER, SELFPAY ==
[2024-10-26 15:53] VITALS: BMI 27.6
--- OUTSIDE RECORDS SUMMARY | 2024-11-05 00:32 | XMS_ITS | Clinical Summary ---
Author Organization [facility] [place] [address] Address [address] [place] [address] Care Team Providers Care Integration Architect Name Role Phone Vinny Kennedy MD Primary Care Provider [phone] Allergies Active Allergy Reactions Criticality Noted Date Comments Venom-Honey Bee Unknown 03/30/2021 Medications aspirin 81 mg enteric coated tablet Take 1 tablet (81 mg total) by mouth every morning 02/28/2021 Active atorvastatin (LIPITOR) 40 mg tablet TAKE 1 TABLET(40 MG) BY MOUTH DAILY 90 tablet 1 08/09/2024 Active Active Problems Problem Noted Date Diagnosed Date Coronary artery disease invo lving [place] coronary artery of [place] heart without angina pectoris 04/16/2022 Surgical History Surgery Date Site/Laterality Comments CARDIAC CATHETERIZATION 02/27/2021 Medical History Medical History Date Comments NSTEMI (non-ST elevated myocardial infarction) ( [facility]) 02/26/2021 Family History Medical History Relation Name Comments No Known Problems Father No Known Problems Mother No Known Problems Sister 1 No Known Problems Sister 2 Relation Name Status Comments Father Alive Mother Alive Sister 1 Alive Sister 2 Alive Social History Tobacco Use Types Packs/Day Years Used Date Smoking Tobacco: Former Smokeless Tobacco: Never Tobacco Cessation:Counseling Given: Not Answered Personal Safety Answer Date Recorded Getting School Help Needed Not on file 09/10 Sex and Gender Information Value Date Recorded Sex Assigned at Not on file Legal Sex Male 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 Gender Identity Not on file Sexual Orientation Not on file Obstetrics History Last Filed Vital Signs Vital Sign Reading Time Taken Comments Blood Pressure 124/80 12/30/2023 3:54 PM CDT Pulse 67 12/30/2023 3:54 PM CDT Temperature - - Respiratory Rate - - Oxygen Saturation 98% 12/30/2023 3:54 PM CDT Inhaled Oxygen Concentration - - Weight 96.7 kg (213 lb 3.2 oz) 12/30/2023 3:54 P M CDT Height 182.9 cm (6') 12/30/2023 3:54 PM CDT Body Mass Index 28.92 12/30/2023 3:54 PM CDT Plan of Treatment Health Maintenance Due Date Last Done Comments Colon Cancer Screening-Colonoscopy 1965 Depression Screening 1965 Hepatitis C Screening 1965 Prostate Cancer Screening-PSA 1965 Hepatitis B Screening 01/15/1982 Regular Well Visit/Exam 18-64 01/15/1982 Zoster Vaccine (1 of 2) 01/15/2014 Covid-19 Vaccine (3 - season) 2024 07/10/2021, 10/27/2020 Influenza Vaccine (#1) 2024 2, 06/22/2021, 05/26/2020, Additional history exists DTaP/Tdap/Td Vaccine (2 - Td or Tdap) 05/27/2033 05/27/2023 Pneumococcal vaccine <65 Aged Out No longer eligible based on patient's age to complete this [place] [address] [facility] Care Teams Integration Architect Relationship Specialty Start Date End Date Vinny Kennedy MD PCP - General Family Medicine 12/30/23
--- OUTSIDE RECORDS SUMMARY | 2024-11-05 00:32 | XMS_ITS | Clinical Summary ---
Author Organization 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 12/20/2022 Active aspirin 81 MG chewable tablet Chew 1 tablet (81 mg total) by mouth daily. Active Active Problems Problem Noted Date Diagnosed Date Hyperlipidemia, unspecified hyperlipidemia type 11/26/2023 Overweight (BMI 25.0-29.9) 05/27/2023 Actinic keratoses 05/27/2023 Nicotine dependence, cigarettes, uncomplicated 1 Coronary artery disease invo lving [place] coronary artery of [place] heart without angina pectoris 04/16/2022 Resolved Problems Problem Noted Date Diagnosed Date Resolved Date Alcohol use 05/27/2023 12/01/2023 Immunizations Name Administration Dates Next Due Influenza (Generic) 06/15/2015 Influenza Adult (Generic) 06/21/2022,,05/26/2020, 017,06/03/2016 PFIZER COVID-19 (ORIGINAL FORMULATION, PURPLE CAP) mRNA, LNP-S, PF, 30 MCG/0.3 ML DOSE 07/10/2021 Tdap (Adacel) 05/27/2023 Family History Medical History Relation Comments Crohns Disease Son Relation Status Comments Father Alive Maternal Grandfather Maternal Grandmother Mother Alive Paternal Grandfather Paternal Grandmother Son Social History Tobacco Use Types Packs/Day Years Used Date Smoking Tobacco: Every Day Cigarettes Smokeless Tobacco: Never Tobacco Cessation:Ready to Q uit: No; Counseling Given: Yes Alcohol Use Standard Drinks/Week Comments Yes 16.7 (1 standard drink = 0.6 oz pure alcohol) daily PHQ-2 Answer Date Recorded Patient Health Questionnaire-2 Score 0 05/28/2024 Sex and Gender Information Value Date Recorded Sex Assigned at Not on file Legal Sex Male 12:54 PM CDT Gender Identity Not on file Sexual Orientation Not on file Last Filed Vital Signs Vital Sign Reading Time Taken Comments Blood Pressure 139/83 05/28/2024 4:03 PM CDT Pulse 66 05/28/2024 4:03 PM CDT Temperature 36.4 C (97.6 F) 05/28/2024 4:03 PM CDT Respiratory Rate 18 05/28/2024 4:03 PM CDT Oxygen Saturation 99% 05/28/2024 4:03 PM CDT Inhaled Oxygen Concentration - - Weight 96.4 kg (212 lb 9.6 oz) 05/28/2024 4:03 P M CDT Height 182.9 cm (6') 05/28/2024 4:03 PM CDT Body Mass Index 28.83 05/28/2024 4:03 PM CDT Plan of Treatment Health Maintenance Due Date Last Done Comments ASCVD Statin 1965 Colorectal Cancer Screening Colonoscopy (10 Years) 1965 Pneumococcal Vaccine: Pediatrics (0 to 5 Years) and At-Risk Patients (6 to 64 Years) (1 of 2 - PCV) 01/15/1970 RSV Immunization or 60+ Years (1 - Risk 60-74 years 1-dose series) 2024 COVID-19 Vaccine (3 - 2023- season) 2024 07/10/2021, 10/27/2020 Influenza Adult (#1) 2024 06/18/2023, 06/21/2022, 06/22/2021, Additional history exists PHQ-2 (Physician [place]) 08/25/2024 05/28/2024 Annual Physical 11/25/2024 11/26/2023 PHQ-2 (Physician [place]) 05/28/2025 05/28/2024 Zoster Vaccines (1 of 2) 05/28/2025 Pos tponed from 01/15/2014 (Patient Refused) DTaP, Tdap and Td Vaccines (2 - Td or Tdap) 05/27/2033 05/27/2023 Hepatitis C Completed 06/08/2024 Meningococcal B Vaccine Aged Out No l onger eligible based on patient's age to complete this topic Meningococcal Vaccine Aged Out No irma miranda eligible based on patient's age to complete this topic RSV Immunizations Under 20 Months Aged Out No longer eligible based on patient's age to complete this topic Procedures Procedure Name Priority Date/Time Associated Diagnosis Comments HEPATITIS C ANTIBODY W/RFX TO HCV RNA Routine 06/08/2024 7:07 AM CDT Encounter for hepatitis C screening test for low risk patient from Last 3 Months or Most Recently Relevant to Health Maintenance Results * HEPATITIS C ANTIBODY W/RFX TO HCV RNA ([facility] ONLY) (06/08/2024 7:07 AM CDT) HEPATITIS C AB NON-REACT BREN NON-REACT BREN [facility] Comment: HCV antibody was non-reactive. There is no laboratory evidence of HCV infection. In most cases, no further action is required. However, if recent HCV exposure is suspected, a test for HCV RNA (test code 11909) is suggested. For additional information please refer to http://education.Netmining/faq/FCV37a7 (This link is being provided for informational/ educational purposes only.) 06/08/2024 7:07 AM CDT 06/08/2024 7:09 AM CDT Narrative [facility] - EVELIN ORDERS - 06/09/2024 3:14 AM CDT FASTING:YES FASTING: YES Resulting Agency Comment Performing Organization Information: Site ID: [id number] Name: [facility] Address: [address] [id number] Director: Duane Mcneal MD us Vinny Kennedy MD LABORATORY Final Result [facility] - [facility]EL[facility]DERS [facility] [address] [place] [address], from Last 3 Months or Most Recently Relevant to Health Maintenance Insurance [facility] Care Teams Airplane Electrician Relationship Specialty Start Date End Date Vinny Kennedy MD [address] [place] [phone] PCP - General FAMILY PRACTICE 05/08/23
--- OUTSIDE RECORDS SUMMARY | 2024-11-05 00:32 | XMS_ITS | Encounter Summary ---
Author Organization [facility] Address [address] [place] [address] Care Team Providers Care Steward/Stewardess Tourist Class Name Role Phone Vinny Kennedy MD Primary Care Provider [phone] Encounter Details Date Type Department Care Team (Late st Contact Info) Description 06/11/2023 [employer] Message Enc [facility] Family Medicine [address] [place] [address] Vinny Kennedy MD [address] [place] [address]. [place] [address] Lab results Social History Tobacco Use Types Packs/Day Years Used Date Smoking Tobacco: Every Day Cigarettes Smokeless Tobacco: Never Alcohol Use Standard Drinks/Week Comments Yes 0 (1 standard drink = 0.6 oz pur e alcohol) daily Sex and Gender Information Value Date Recorded Sex Assigned at Not on file Legal Sex Male 12:54 PM CDT Gender Identity Not on file Sexual Orientation Not on file documented as of this encounter Plan of Treatment Not on file documented as of this encounter Visit Diagnoses Not on filedocumented in this encounter Care Teams Steward/Stewardess Tourist Class Relationship Specialty Start Date End Date Vinny Kennedy MD [address] [place] [address] [place] [address] PCP - General FAMILY PRACTICE 05/08/23 documented as of this encounter
--- OUTSIDE RECORDS SUMMARY | 2024-11-05 00:32 | XMS_ITS | Referral Summary ---
Author Organization [facility] [address] Address [address] [place] [address] Care Team Providers Care Roll Up Helper Name Role Phone Vinny Kennedy MD Primary Care Provider [phone] Allergies Active Allergy Reactions Criticality Noted Date Comments Venom-Honey Bee Unknown 03/30/2021 Medications aspirin 81 mg enteric coated tablet Take 1 tablet (81 mg total) by mouth every morning 02/28/2021 Active atorvastatin (LIPITOR) 40 mg tablet TAKE 1 TABLET(40 MG) BY MOUTH DAILY 90 tablet 1 08/09/2024 Active Active Problems Problem Noted Date Diagnosed Date Coronary artery disease invo lving [place] coronary artery of [place] heart without angina pectoris 04/16/2022 Social History Tobacco Use Types Packs/Day Years Used Date Smoking Tobacco: Former Smokeless Tobacco: Never Tobacco Cessation:Counseling Given: Not Answered Personal Safety Answer Date Recorded Getting School Help Needed Not on file 09/10 Sex and Gender Information Value Date Recorded Sex Assigned at Not on file 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
[2024-11-05 07:44] VITALS: BP 116/76; PULSE 78; RESP 18; TEMP 36.1; O2SAT 100
--- NOTE | 2024-11-05 07:56 | WPDANESEPPF ---
Anes - Initial Pre Proc Eval Procedure: Operation Date: 11/05/24 09:00 Proposed Procedures p Screening Colonoscopy - Benjamin Pham MD Date/Time: 11/05/24 07:56 Surgeon: Benjamin Pham MD Pre Op Diagnosis: screening colon Patient Data Age: 59 Gender: M Height: 1.83 m Weight: 93.6 kg Last Vital Signs Temp 36.1 C L 11/05/24 07:44 Pulse 78 11/05/24 07:44 Resp 18 11/05/24 07:44 BP 116/76 11/05/24 07:44 Pulse Ox 100 11/05/24 07:44 O2 Del Method Room Air 11/05/24 07:44 Allergies Allergy/AdvReac Type Severity Reaction Status Date / Time No Known Allergies Allergy Verified 11/05/24 07:43 Home Medications ?Medication ?Instructions ?Recorded ?Confirmed ?Type aspirin 81 mg tablet,delayed 81 mg PO QAM #30 tabs 02/28/21 11/05/24 Rx release atorvastatin 40 mg tablet 40 mg PO DAILY 30 days #30 tabs 02/28/21 11/05/24 Rx Patient hx anesthesia problems: none Family hx anesthesia problems: none Results Review: All pre-operative results and documents have been reviewed as part of the pre-operative evaluation. [facility] Past Medical History Medical History Coronary artery disease Non-ST elevation [place] (NSTEMI) Tobacco abuse Surgical History Surgical History History of dental surgery Family History Family History Son Crohn disease Social History Social History Social History: the patient lives with his who is the durable power civil rights attorney for healthcare. The patient has 2 children. The patient continues to smoke a half pack a cigarettes a day. He does not use any marijuana or illicit drugs. He occasionally uses alcohol. He desires to be a full code. 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 Smoking packs per day: 0.5 Smoking cigarettes per day: 10.0 Years smoked: 30 Smoking pack-years: 15.00 Smoking status: Current every day smoker Tobacco type: cigarettes Second hand tobacco smoke exposure: Yes Alcohol intake: current Drinks per week: 14 Substance use: never Substance use type: does not use Living arrangements: with family Spiritual care concerns: No Anes - Eval Final PreProcedure Day of Procedure 11/05/24 07:56 Patient weight: overweight Heart: regular rate and rhythm Lungs: clear to auscultation Airway: Mallampati scale class II Neurological: alert and oriented Last oral intake: >/= 8 hours ASA classification: III Emergent: no Anesthetic plan: proceed Anesthesia type and monitoring: general GIVS and standard monitoring Results Review: All pre-operative results and documents have been reviewed as part of the pre-operative evaluation. Informed Consent: The patient's anesthetic plan and its attendant risks and benefits were discussed with the patient/family/POA. Questions were solicited and answers provided to the satisfaction of the patient/family/POA.
[2024-11-05] MEDS: LACTATED RINGERS 1,000 ML 150 ML IV CONT (08:03)
--- NOTE | 2024-11-05 08:36 | PM.HPGS ---
History of Present Illness History of Present Illness Consent: Risks, benefits, and alternatives have been discussed and questions answered. Patient agrees to proceed with procedure. Chief complaint: screening colon Narrative: Jose Daniel Munguia is a 59 year old male here for first screening colonoscopy Review of Systems Review of Systems: All systems reviewed & are unremarkable except as noted in HPI and below PMFSH Past Medical History Medical History (Updated 11/05/24 @ 08:36 by Benjamin Pham MD) Colon cancer screening Coronary artery disease Non-ST elevation [place] (NSTEMI) Tobacco abuse Surgical History Surgical History History of dental surgery Family History Family History Son Crohn disease Social History Social History Social History: the patient lives with his who is the durable power litigation attorney associate for healthcare. The patient has 2 children. The patient continues to smoke a half pack a cigarettes a day. He does not use any marijuana or illicit drugs. He occasionally uses alcohol. He desires to be a full code. 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 Smoking packs per day: 0.5 Smoking cigarettes per day: 10.0 Years smoked: 30 Smoking pack-years: 15.00 Smoking status: Current every day smoker Tobacco type: cigarettes Second hand tobacco smoke exposure: Yes Alcohol intake: current Drinks per week: 14 Substance use: never Substance use type: does not use Living arrangements: with family Spiritual care concerns: No Meds Home Medications and Allergies Home Medications ?Medication ?Instructions ?Recorded ?Confirmed ?Type aspirin 81 mg tablet,delayed 81 mg PO QAM #30 tabs 02/28/21 11/05/24 Rx release atorvastatin 40 mg tablet 40 mg PO DAILY 30 days #30 tabs 02/28/21 11/05/24 Rx Allergies Allergy/AdvReac Type Severity Reaction Status Date / Time No Known Allergies Allergy Verified 11/05/24 07:43 Vital Signs Vital Signs - 24 hr 11/05/24 07:44 Temperature 97 F L Pulse Rate 78 Respiratory Rate 18 Blood Pressure 116/76 Pulse Oximetry 100 Oxygen Delivery Room Air Exam Const: General: comfortable and no acute distress HENMT: Face/Nose/Sinus: Normal nares present Eyes: General: appearance normal, both eyes and all related structures Neck: Neck: no JVD Resp: Auscultation: clear to auscultation bilaterally Cardio: Rate: regular rate Rhythm: regular rhythm GI: Inspection: non-distended GI Palp: Yes Soft to palpation Skin: General skin exam: normal color Neuro: General: gait normal Speech: normal speech Extrem: General: normal to inspection Psych: Mental Status: mental status grossly normal Assessment and Plan Assessment and plan (1) Colon cancer screening: Code(s): Z12.11 - Encounter for screening for malignant neoplasm of colon Status: Acute Assessment and Plan: colonoscopy
[2024-11-05 09:00] VITALS: BP 92/57; PULSE 57; RESP 17; O2SAT 100
[2024-11-05 09:10] VITALS: BP 109/57; PULSE 58; RESP 17; O2SAT 100
[2024-11-05 09:20] VITALS: BP 109/65; PULSE 60; RESP 17; O2SAT 100
== END 2024-11-05 09:34 | disposition home or self-care (01) ==
PROVIDERS: Visit Provider Internal Medicine Gastroenterology
PROC: 0DJD8ZZ Inspection of Lower Intestinal Tract, Via Natural or Artificial Opening Endoscopic (ICD-10-PCS; CPT 45378; principal; 2024-11-05 09:00)
DX: Z12.11 Encounter for screening for malignant neoplasm of colon (principal); D12.3 Benign neoplasm of transverse colon; K64.8 Other hemorrhoids; I25.10 Atherosclerotic heart disease of native coronary artery without angina pectoris; I25.2 Old myocardial infarction; F17.210 Nicotine dependence, cigarettes, uncomplicated; Z79.82 Long term (current) use of aspirin; Z98.890 Other specified postprocedural states
CPT/HCPCS: 45380; 88305; J2003; J2704; J7120